=== PATIENT | female | born 1955 | race Caucasian/White ===

== ENCOUNTER 2020-05-12 07:26 | Day surgery (SDC) | payer MEDICARE, SELFPAY ==
[2020-05-06 09:52] VITALS: BMI 27.4
--- NOTE | 2020-05-11 08:38 | HO.ANESPROP2 ---
Documented by User: Dara Brunner 05/11/20 08:39 HPI - Anesthesia Eval Consult details Narrative: 64yo F for Upper Endoscopy opioids daily PMFSH Past Medical History Medical History Arthritis Back pain COVID-19 vaccine administered GERD (gastroesophageal reflux disease) History of anxiety History of Croft's esophagus HTN (hypertension) Hx of radiation therapy Hx of vertigo HX: breast cancer Surgical History Surgical History H/O colonoscopy History of esophagogastroduodenoscopy (EGD) History of lumpectomy of left breast Hx of hysterectomy Hx of tonsillectomy Social History Social History Do you presently have visiting nurse or other home services: No Smoking Status: Former smoker Smoked in Last 30 Days: No Smoking Quit Date: age 62 Use of substances other than those prescribed or required for medical reasons: No Have you been hit, kicked, punched, or otherwise hurt by someone within the past year? If so, by whom?: No Advance Directives Information Provided: No Recently lost weight without trying: No Meds Allergies Allergy/AdvReac Type Severity Reaction Status Date / Time celecoxib [Celebrex] Allergy Severe swelling Verified 05/12/20 08:31 gabapentin [From NEURONTIN] Allergy Severe SWELLING Verified 05/12/20 08:31 fentanyl [FENTANYL] Allergy Intermediate NAUSEA & Verified 05/12/20 08:31 VOMITING, stomach upset influenza vaccine Allergy Severe nausea and Uncoded 05/06/20 10:04 vomiting NSAIDS Allergy Intermediate stomach Uncoded 05/06/20 10:04 upset Home Medications Medication Instructions Recorded Confirmed Last Taken Type amlodipine 1 tab PO BEDTIME 05/06/20 05/06/20 Unknown History black cohosh 40 mg PO TID 05/06/20 05/06/20 Unknown History bupropion HCl 1 tab PO BID 05/06/20 05/06/20 Unknown History esomeprazole magnesium [Nexium] 40 mg PO DAILY 05/06/20 05/06/20 Unknown History hydrochlorothiazide 1 tab PO DAILY 05/06/20 05/06/20 Unknown History lorazepam 1 tab PO BID PRN 05/06/20 05/06/20 Unknown History meclizine 25 mg PO TID PRN 05/06/20 05/06/20 Unknown History morphine 1 tab PO BID 05/06/20 05/06/20 Unknown History Exam Exam Date and Time: May 11, 202038 Height,Weight and Vital Signs: Height 5 ft 5 in Weight 74.843 kg Assessment and Plan Assessment Anesthesia Assessment: Chart Reviewed Documented by User: Rohini Mares 05/12/20 09:40 PMFSH Past Medical History Medical History Arthritis Back pain COVID-19 vaccine administered GERD (gastroesophageal reflux disease) History of anxiety History of Croft's esophagus HTN (hypertension) Hx of radiation therapy Hx of vertigo HX: breast cancer Surgical History Surgical History H/O colonoscopy History of esophagogastroduodenoscopy (EGD) History of lumpectomy of left breast Hx of hysterectomy Hx of tonsillectomy Social History Social History Do you presently have visiting nurse or other home services: No Smoking Status: Former smoker Smoked in Last 30 Days: No Smoking Quit Date: age 62 Use of substances other than those prescribed or required for medical reasons: No Have you been hit, kicked, punched, or otherwise hurt by someone within the past year? If so, by whom?: No Advance Directives Information Provided: No Recently lost weight without trying: No Meds Allergies Allergy/AdvReac Type Severity Reaction Status Date / Time celecoxib [Celebrex] Allergy Severe swelling Verified 05/12/20 08:31 gabapentin [From NEURONTIN] Allergy Severe SWELLING Verified 05/12/20 08:31 fentanyl [FENTANYL] Allergy Intermediate NAUSEA & Verified 05/12/20 08:31 VOMITING, stomach upset influenza vaccine Allergy Severe nausea and Uncoded 05/06/20 10:04 vomiting NSAIDS Allergy Intermediate stomach Uncoded 05/06/20 10:04 upset Home Medications Medication Instructions Recorded Confirmed Last Taken Type amlodipine 1 tab PO BEDTIME 05/06/20 05/06/20 Unknown History black cohosh 40 mg PO TID 05/06/20 05/06/20 Unknown History bupropion HCl 1 tab PO BID 05/06/20 05/06/20 Unknown History esomeprazole magnesium [Nexium] 40 mg PO DAILY 05/06/20 05/06/20 Unknown History hydrochlorothiazide 1 tab PO DAILY 05/06/20 05/06/20 Unknown History lorazepam 1 tab PO BID PRN 05/06/20 05/06/20 Unknown History meclizine 25 mg PO TID PRN 05/06/20 05/06/20 Unknown History morphine 1 tab PO BID 05/06/20 05/06/20 Unknown History Exam Airway Mallampati Class: II TM Dist: >3cm Neck ROM: Full Loose/Missing/Broken Teeth: No Heart: RRR Lungs: CTA Assessment and Plan Assessment Anesthesia Assessment: Anesthesia Plan Discussed and Chart Reviewed Final Anesthetic Review NPO: Yes ASA Class: II Final Preanesthetic Review: Meds/Allgs Chart Reviewed, Consent Obtained/Reviewed and Anes Risks/Benef Reviewed Patient Risk: Low Procedure Risk: Intermediate Anesthetic Plan Anesthetic Plan: MAC: Disposition: Standard PACU
[2020-05-12 08:32] VITALS: BP 118/70; PULSE 74; RESP 16; TEMP 36.2; O2SAT 98
[2020-05-12] MEDS: Lactated Ringers 1,000 ML 100 ML IVCONT (08:57)
--- NOTE | 2020-05-12 09:35 | MHC.SHP ---
Pre-Procedural Eval Section A The patient is an INPATIENT: No Changes since office visit: No Cold of Flu in the past 2 weeks, No New Medical Problems, No Changes in Medication and No Patient answered all questions The History & Physical has been completed within 30 days and I have reviewed it.: Yes Section B Chief Complaint: barretts Allergies: Allergies Allergy/AdvReac Type Severity Reaction Status Date / Time celecoxib [Celebrex] Allergy Severe swelling Verified 05/12/20 08:31 gabapentin [From NEURONTIN] Allergy Severe SWELLING Verified 05/12/20 08:31 fentanyl [FENTANYL] Allergy Intermediate NAUSEA & Verified 05/12/20 08:31 VOMITING, stomach upset influenza vaccine Allergy Severe nausea and Uncoded 05/06/20 10:04 vomiting NSAIDS Allergy Intermediate stomach Uncoded 05/06/20 10:04 upset Plan I have reviewed the history and physical and performed a pertinent physical examination on my patient. No changes have occurred unless specified.
[2020-05-12 09:57] VITALS: BP 93/59; PULSE 71; RESP 18; TEMP 36.1; O2SAT 100
--- NOTE | 2020-05-12 10:01 | PM.OP ---
Brief Operative Note Date of Service: 05/12/20 Pre-op diagnosis: barretts esophagus Post-op diagnosis: same Procedure: EGD Surgeon: Aleksander Moore Anesthesia: MAC Estimated blood loss (mL): 5 Pathology: other (egj biopsies) Condition: stable Disposition: PACU
[2020-05-12 10:12] VITALS: BP 112/66; PULSE 67; RESP 16; TEMP 36.1; O2SAT 100
--- NOTE | 2020-05-12 10:21 | OP_ITS ---
SURGEON: Aleksander Moore MD INDICATIONS: Croft's esophagus. PREOPERATIVE DIAGNOSIS: POSTOPERATIVE DIAGNOSIS: PROCEDURE PERFORMED: Upper endoscopy with biopsy. ESTIMATED BLOOD LOSS: COMPLICATIONS: ANESTHESIA: ASSISTANTS: SPECIMENS: MEDICATIONS: Monitored anesthesia care. DESCRIPTION OF PROCEDURE: History and physical performed. The risks and benefits of the procedure were explained to the patient. Informed consent was obtained. The patient was placed in left lateral decubitus position. The Olympus video gastroscope was introduced into the esophagus, stomach, and duodenum. Examination was performed and the scope was removed. She tolerated the procedure well and was taken to recovery area in stable condition. FINDINGS: Esophagus: The esophagus was normal. There was an irregular EG junction. This was biopsied. Stomach: The stomach showed no evidence of masses, ulcers, or polyps. Duodenum: The bulb and second portion were normal. IMPRESSION: Croft's esophagus. RECOMMENDATION: Follow up the biopsy results. MD ORLANDO Aparicio/URVASHI / [id number]
== END 2020-05-12 10:00 | disposition home or self-care (01) ==
PROVIDERS: Visit Provider Internal Medicine Gastroenterology
PROC: 0DJ08ZZ Inspection of Upper Intestinal Tract, Via Natural or Artificial Opening Endoscopic (ICD-10-PCS; CPT 43235; principal; 2020-05-12 08:40)
DX: K22.70 Barrett's esophagus without dysplasia (principal); K21.9 Gastro-esophageal reflux disease without esophagitis; K58.9 Irritable bowel syndrome, unspecified; Z79.899 Other long term (current) drug therapy
CPT/HCPCS: 43239; 88305

== ENCOUNTER → 2020-06-15 07:48 | Outpatient (BNV) | payer BC, MEDICARE, SELFPAY | PROVIDERS: PCP Family Medicine; Referring Provider Family Medicine; Visit Provider Internal Medicine Medical Oncology | DX: Z85.3 Personal history of malignant neoplasm of breast (principal); M85.80 Other specified disorders of bone density and structure, unspecified site; Z87.891 Personal history of nicotine dependence | CPT/HCPCS: 99204; 99213 ==

== ENCOUNTER 2020-07-29 12:48 | Outpatient (REF) | payer MEDICARE, SELFPAY ==
--- NOTE | ~2020-07-29 | MM_ITS ---
EXAMINATION: MM DIAGNOSTIC DIGITAL BREAST TOMOSYNTHESIS, BILATERAL CLINICAL INFORMATION: History left invasive ductal carcinoma with lobular features 2018. Surgery at local outside hospital and radiation therapy performed [id number]. Prior mammography since ultrasound-guided biopsy currently unavailable. COMPARISON: Mammography: 07/13/2017, 06/29/2017, outside mammography 05/09/2014 ([place], [place]). TECHNIQUE: Digital breast tomosynthesis is performed in both the craniocaudal and mediolateral oblique views along with computer-aided detection (CAD). Synthesized 2D images are generated from the tomosynthesis. Additional magnification left CC and magnification left ML views are obtained. FINDINGS: There are scattered areas of fibroglandular density (ACR BI-RADS breast composition Category b). There are post therapy changes on left with mild scarring upper outer quadrant with adjacent surgical clip. Neither breast shows significant mass or interval architectural abnormality or abnormal calcifications. The right breast is unremarkable. There is small benign asymmetric density mid medial left breast on CC view is stable from 2017 and 2014. No developing density. The axilla and skin contours are unremarkable. Results are provided to the patient at time of visit by the technologist. MM/MM tomosynthesis diagnostic BI IMPRESSION: No mammographic evidence of malignancy. ASSESSMENT: BI-RADS 2: Benign RECOMMENDATION: Routine annual mammography screening. This patient's information was entered into a reminder system with a target due date for their next mammogram.
== END 2020-07-29 12:49 | disposition home or self-care (01) ==
LOC: HO.MAMMO 12:48
PROVIDERS: Visit Provider Internal Medicine Medical Oncology
DX: Z85.3 Personal history of malignant neoplasm of breast (principal); Z98.890 Other specified postprocedural states
CPT/HCPCS: 77062; 77066

== ENCOUNTER 2021-07-30 09:43 | Outpatient (REF) | payer MEDICARE, SELFPAY ==
--- NOTE | ~2021-07-30 | MM_ITS ---
EXAMINATION: MM SCREENING DIGITAL BREAST TOMOSYNTHESIS, BILATERAL CLINICAL INFORMATION: Left invasive ductal carcinoma with lobular features, 2018. Screening, asymptomatic. COMPARISON: Mammography: 07/29/2020, 07/13/2017, 06/29/2017; outside mammography 05/09/2014 ([place], [place]). TECHNIQUE: Digital breast tomosynthesis is performed in both the craniocaudal and mediolateral oblique views along with computer-aided detection (CAD). Synthesized 2D images are generated from the tomosynthesis. FINDINGS: There are scattered areas of fibroglandular density (ACR BI-RADS breast composition Category b). Parenchymal pattern is similar to prior exam. There are post therapy changes on the left with old stable scarring and adjacent surgical clip. Neither breast shows developing density or interval mass or architectural abnormality. No abnormal calcifications. The axilla are unremarkable. MM/MM tomosynthesis screening BI IMPRESSION: -No mammographic evidence of malignancy. -Post therapy changes left breast, stable. ASSESSMENT: BI-RADS 2: Benign RECOMMENDATION: Routine annual mammography screening. This patient's information was entered into a reminder system with a target due date for their next mammogram.
== END 2021-07-30 09:44 | disposition home or self-care (01) ==
LOC: HO.MAMMO 09:43
PROVIDERS: PCP Nurse Practitioner Family; Visit Provider Nurse Practitioner Family
DX: Z12.31 Encounter for screening mammogram for malignant neoplasm of breast (principal)
CPT/HCPCS: 77063; 77067

== ENCOUNTER → 2022-04-11 10:33 | Outpatient (BNVA) | payer MEDICARE, SELFPAY | PROVIDERS: PCP Nurse Practitioner Family; Referring Provider Internal Medicine Medical Oncology; Visit Provider Surgery | DX: Z85.3 Personal history of malignant neoplasm of breast (principal); Z92.3 Personal history of irradiation | CPT/HCPCS: 99202 ==

== ENCOUNTER 2022-08-02 09:57 | Outpatient (REF) | payer BC, SELFPAY ==
--- NOTE | ~2022-08-02 | MM_ITS ---
EXAMINATION: BONE DENSITOMETRY CLINICAL INDICATION: Osteopenia. COMPARISON: Previous BD dated 10/07/2011 and baseline BD dated 07/09/2007. TECHNIQUE: Using a Ch[employer] DXA System (software version: 13.1) manufactured by [email or web address], dual-energy x-ray absorptiometry was performed of the lumbar spine and left hip. The images are of good technical quality. Summary results are attached. FINDINGS: LEFT FEMUR, NECK: Current: BMD 0.867 g/cm2, Z-score 0.3, T-score -1.2, osteopenia. Prior: BMD 0.941 g/cm2. Baseline: BMD 1.045 g/cm2. LEFT FEMUR, TOTAL: Current: BMD 0.842 g/cm2, Z-score 0.0, T-score -1.3, osteopenia, 14.9% decrease from previous, 18.5% decrease from baseline (<5% change is not significant). Prior: BMD 0.990 g/cm2. Baseline: BMD 1.033 g/cm2. AP SPINE L1-L4: Current: BMD 1.470 g/cm2, Z-score 3.9, T-score 2.4, normal, 0.2% decrease from previous, 1.4% decrease from baseline (<5% change is not significant). Prior: BMD 1.473 g/cm2. Baseline: BMD 1.491 g/cm2. IDENTIFIED RISK FACTORS: Menopause, height loss, hysterectomy, left oophorectomy, thiazide. HISTORY OF FRACTURE: None listed. MEDICATIONS: Vitamin D. MM/XR DEXA axial skeleton IMPRESSION: 1. DIAGNOSIS: Osteopenia based on the lowest T-score value of -1.3 in the total femur applying World Health Organization criteria. 2. 10-YEAR FRACTURE RISK PREDICTION, FRAX: Major osteoporotic fracture (clinical spine, forearm, hip or shoulder) 9.1%. Hip fracture 0.9%. 3. Treatment Recommendations: NOF guidelines recommend consideration for treatment in postmenopausal women and men age 50 and older presenting with the following: -A hip or vertebral (clinical or morphometric) fracture. -T-score less than or equal to -2.5 at the femoral neck or spine after appropriate evaluation to exclude secondary causes. -Low bone mass at the hip or spine and a 10-year fracture probability by FRAX of greater than or equal to 3% for hip fracture or greater than or equal to 20% for major osteoporotic fracture based on the [place] adapted WHO algorithm. 4. Other Recommendations: All treatment decisions require clinical judgment and consideration of individual patient factors, including patient preferences, comorbidities, previous drug use, risk factors not captured in the FRAX model (e.g. frailty, falls, vitamin D deficiency, increased bone turnover, interval significant decline in bone density) and possible under or overestimation of fracture risk by FRAX. Additional medical evaluation for secondary cause of low bone mineral density may be appropriate. FUTURE SCAN RECOMMENDATION: People with diagnosed cases of osteoporosis or at high risk for fracture should have regular bone mineral density tests. For patients eligible for Medicare, routine testing is allowed once every 2 years. The testing frequency can be increased to one year for patients who have rapidly progressing disease, those who are receiving or discontinuing medical therapy to restore bone mass, or have additional risk factors.
--- NOTE | ~2022-08-02 | MM_ITS ---
EXAMINATION: MM SCREENING DIGITAL BREAST TOMOSYNTHESIS, BILATERAL CLINICAL INFORMATION: Left breast IDC with lobular features, 2018. Due for yearly. COMPARISON: Prior mammography exams including most recent 07/30/2021. TECHNIQUE: Digital breast tomosynthesis is performed in both the craniocaudal and mediolateral oblique views along with computer-aided detection (CAD). Synthesized 2D images are generated from the tomosynthesis. FINDINGS: There are scattered areas of fibroglandular density (ACR BI-RADS breast composition Category b). There are post therapy changes on the left with mild reduced breast size and old scarring and surgical clip. Neither breast shows developing density or interval significant mass or architectural abnormality or abnormal calcifications. The axilla are unremarkable. No significant changes. MM/MM tomosynthesis screening BI IMPRESSION: -No mammographic evidence of malignancy. -Post therapy changes left breast. ASSESSMENT: BI-RADS 2: Benign RECOMMENDATION: Routine annual mammography screening. This patient's information was entered into a reminder system with a target due date for their next mammogram.
== END 2022-08-02 09:58 | disposition home or self-care (01) ==
LOC: HO.MAMMO 09:57
PROVIDERS: Visit Provider Internal Medicine Medical Oncology
DX: Z12.31 Encounter for screening mammogram for malignant neoplasm of breast (principal); Z13.820 Encounter for screening for osteoporosis; Z78.0 Asymptomatic menopausal state; M85.88 Other specified disorders of bone density and structure, other site
CPT/HCPCS: 77063; 77067; 77080

== ENCOUNTER 2022-10-13 10:11 | Outpatient (AMB) | payer MEDICARE, SELFPAY ==
--- NOTE | 2022-10-13 10:15 | A.OFFVIS_ITS ---
Intake Intake Visit Reasons: hx of left breast CA, 6 month follow up Intake Note: This patient presemt for a six month follow-up breast examination assessment , Hx left breast carcinoma. Patient c/o; denies breast complaints at this time. 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 She had undergone lumpectomy and sentinel node biopsy for an invasive ductal cancer of the left breast in [facility] in 2018. She had a T1 N0 cancer at that time. She moved to [place] thereafter and underwent radiation to the left breast there. She was a candidate for hormonal treatment as she had receptors positive for ERPR but she did not want to proceed with hormonal treatment. She moved back to [place] 2 years ago.. She wanted to be followed by a surgeon so she was referred to me. She is following Dr. Da Silva as well. She denies any complaints at this time. [facility] Medical History Cataracts, bilateral History of left breast cancer Hx of radiation therapy HTN (hypertension) Arthritis Back pain GERD (gastroesophageal reflux disease) HX: breast cancer Hx of vertigo History of anxiety COVID-19 vaccine administered History of Croft's esophagus Surgical History History of knee replacement Hx of tonsillectomy Hx of hysterectomy History of lumpectomy of left breast History of esophagogastroduodenoscopy (EGD) H/O colonoscopy Family History Maternal Aunt Breast cancer Mother Hypertension Brother Hypertension Maternal Uncle Brain cancer Social History Household Members: Spouse Housing: House Are you a primary healthcare receptionist to a significant other at home: No Do you presently have visiting nurse or other home services: No Alcohol intake: former Patient Tobacco Use Status: Never used Tobacco service: No Current occupational status: retired Review of Systems Const Denies chills and Denies fever(s) Card Denies chest pain, Denies dyspnea and Denies dyspnea on exertion Resp Denies cough, Denies dyspnea and Denies dyspnea on exertion GI Denies hematochezia and Denies change in bowel habits Denies hematuria Musc Denies back pain and Denies limited range of motion Neuro Denies focal weakness and Denies convulsions Psych Denies depression and Denies mood swings Physical Exam Const General: comfortable and no acute distress Orientation/consciousness: patient oriented x3 Neck Neck: Yes no lymphadenopathy Chest Other: No palpable breast masses, no nipple or skin changes, no axillary lymphadenopathy Resp Auscultation: clear to auscultation bilaterally Cardio Rhythm: regular rhythm GI Palpation (GI): Soft to palpation, nontender and no guarding Neuro General: patient oriented x3 Assessment & Plan Assessment & Plan (1) History of left breast cancer: Code(s): Z85.3 - Personal history of malignant neoplasm of breast Plan: Current exam does not reveal any palpable breast masses. I have reviewed her mammogram from July, and this is unremarkable. I emphasized to her to continue doing yearly screening mammograms. She continues to follow with Dr. Da Silva although she says that she did not want to go for hormonal treatment She can see me in the office again next year after her mammogram. Coding Level of Care Code Est Pt Level 3 (03563) Diagnoses History of left breast cancer Z85.3
== END 2022-10-13 10:43 | disposition home or self-care (01) ==
PROVIDERS: Visit Provider Surgery
DX: Z85.3 Personal history of malignant neoplasm of breast (principal)
CPT/HCPCS: 99213

== ENCOUNTER → 2022-10-13 10:11 | Outpatient (BNVA) | payer MEDICARE, SELFPAY | PROVIDERS: Visit Provider Surgery | DX: Z85.3 Personal history of malignant neoplasm of breast (principal) | CPT/HCPCS: 99212 ==

== ENCOUNTER 2023-08-04 10:15 | Outpatient (REF) | payer MEDICARE, SELFPAY ==
--- NOTE | ~2023-08-04 | MM_ITS ---
EXAMINATION: MM SCREENING DIGITAL BREAST TOMOSYNTHESIS, BILATERAL CLINICAL INFORMATION: Screening. Asymptomatic. Patient has history of prior left breast cancer diagnosed in 2018. COMPARISON: Mammography: This study is compared with prior exams dating back to 2018. TECHNIQUE: Digital breast tomosynthesis is performed in both the craniocaudal and mediolateral oblique views along with computer-aided detection (CAD). Synthesized 2D images are generated from the tomosynthesis. FINDINGS: There are scattered areas of fibroglandular density (ACR BI-RADS breast composition Category b). There are no significant masses, abnormal calcifications, or other abnormalities. There is minor architectural changes in the superior aspect of the left breast. This is related to prior surgery. MM/MM tomosynthesis screening BI IMPRESSION: No mammographic evidence of malignancy. ASSESSMENT: BI-RADS BI-RADS 2 - Benign Findings RECOMMENDATION: Routine annual mammography screening. 1 year F/U This examination should not preclude the clinical evaluation of a suspicious palpable abnormality. This patient's information was entered into a reminder system with a target due date for their next mammogram.
== END 2023-08-04 10:16 | disposition home or self-care (01) ==
LOC: HO.MAMMO 10:15
PROVIDERS: PCP Nurse Practitioner Family; Visit Provider Nurse Practitioner Family
DX: Z12.31 Encounter for screening mammogram for malignant neoplasm of breast (principal)
CPT/HCPCS: 77063; 77067

== ENCOUNTER → 2023-08-04 10:15 | Outpatient (BNV) | payer MEDICARE, SELFPAY | PROVIDERS: PCP Nurse Practitioner Family; Visit Provider Radiology Diagnostic Radiology | DX: Z12.31 Encounter for screening mammogram for malignant neoplasm of breast (principal) | CPT/HCPCS: 77063; 77067 ==

== ENCOUNTER 2023-10-11 10:14 | Outpatient (AMB) | payer MEDICARE, SELFPAY ==
[2023-10-11 10:22] VITALS: BP 116/67; PULSE 82; BMI 25.3
--- NOTE | 2023-10-11 10:22 | MHC.OFFVIS ---
Vital Signs 10/11/23 10:22 Height 5 ft 5 in Weight 152 lb BMI 25.3 BP 116/67 Blood Pressure Location Rt brachial Position Sitting Pulse 82 Intake Visit Reasons: hx of left breast CA, 1 year follow up Intake Note: This patient presents for hx of left breast CA, 1 year follow up. Pt c/o; reports no complaints at this time. 08/04/2023-Mammo screening Champagne Maker Required: No Accompanied by: Self / Same As Patient Allergies celecoxib [Celebrex] Allergy (Severe, Verified 10/11/23 10:28) swelling gabapentin [From NEURONTIN] Allergy (Severe, Verified 10/11/23 10:28) SWELLING fentanyl [FENTANYL] Allergy (Intermediate, Verified 10/11/23 10:28) NAUSEA & VOMITING, stomach upset influenza vaccine Allergy (Severe, Uncoded 10/11/23 10:28) nausea and vomiting NSAIDS Allergy (Intermediate, Uncoded 10/11/23 10:28) stomach upset HPI HPI hx of left breast CA, 1 year follow up: Details: 68-year-old female here for a history of left breast cancer. She had undergone lumpectomy and sentinel node biopsy for an invasive ductal cancer of the left breast in [facility] in 2018. She had a T1 N0 cancer at that time. She moved to [place] thereafter and underwent radiation to the left breast there. She was a candidate for hormonal treatment as she had receptors positive for ERPR but she did not want to proceed with hormonal treatment. She moved back to [place] 3 years ago. She continues to follow up with Dr. Da Silva as well as Oncology. She denies any palpable breast masses. She says she feels well overall. [facility] Medical History Cataracts, bilateral History of left breast cancer Hx of radiation therapy HTN (hypertension) Arthritis Back pain GERD (gastroesophageal reflux disease) HX: breast cancer Hx of vertigo History of anxiety COVID-19 vaccine administered History of Croft's esophagus Surgical History History of knee replacement Hx of tonsillectomy Hx of hysterectomy History of lumpectomy of left breast History of esophagogastroduodenoscopy (EGD) H/O colonoscopy Family History Maternal Aunt Breast cancer Mother Hypertension Brother Hypertension Maternal Uncle Brain cancer Social History Household Members: Spouse Housing: House Are you a primary physician primary care sports medicine to a significant other at home: No Do you presently have visiting nurse or other home services: No Alcohol intake: former Patient Tobacco Use Status: Never used Tobacco service: No Current occupational status: retired Review of Systems Const Denies chills and Denies fever(s) Card Denies chest pain, Denies dyspnea and Denies dyspnea on exertion Resp Denies cough, Denies dyspnea and Denies dyspnea on exertion GI Denies hematochezia and Denies change in bowel habits Denies hematuria Musc Denies back pain and Denies limited range of motion Neuro Denies focal weakness and Denies convulsions Psych Denies depression and Denies mood swings Physical Exam Vital Signs: Last Vital Signs Pulse 82 10/11/23 10:22 BP 116/67 10/11/23 10:22 BMI result Body Mass Index 25.3 Const General: comfortable and no acute distress Orientation/consciousness: patient oriented x3 Neck Neck: Yes no lymphadenopathy Chest Other: No palpable breast masses, no nipple or skin changes, no axillary lymphadenopathy Resp Auscultation: clear to auscultation bilaterally Cardio Rhythm: regular rhythm GI Palpation (GI): Soft to palpation, nontender and no guarding Neuro General: patient oriented x3 Assessment & Plan Assessment & Plan (1) History of left breast cancer: Code(s): Z85.3 - Personal history of malignant neoplasm of breast Category: Medical Plan: She has a history of left breast cancer more than 5 years ago. She is doing very well. Current exam does not reveal any palpable breast mass or axillary lymphadenopathy I have reviewed her mammogram from July,. This is a BI-RADS 2 mammogram. I reminded her to continue doing this every year She was asked to continue follow-up with Dr. Da Silva. She can see me on a p.r.n. basis but I can see her again next year for another breast exam. Coding Level of Care Code Est Pt Level 3 (53124) Diagnoses History of left breast cancer Z85.3
== END 2023-10-11 10:42 | disposition home or self-care (01) ==
PROVIDERS: PCP Nurse Practitioner Family; Visit Provider Surgery
DX: Z85.3 Personal history of malignant neoplasm of breast (principal)
CPT/HCPCS: 99213

== ENCOUNTER → 2023-10-11 10:14 | Outpatient (BNVA) | payer MEDICARE, SELFPAY | PROVIDERS: PCP Nurse Practitioner Family; Visit Provider Surgery | DX: Z85.3 Personal history of malignant neoplasm of breast (principal) | CPT/HCPCS: 99212 ==

== ENCOUNTER 2024-08-16 09:59 | Outpatient (REF) | payer MEDICARE, SELFPAY ==
--- OUTSIDE RECORDS SUMMARY | 2024-08-16 10:25 | XMS_ITS | Data Portability ---
Author Organization [place] [facility], [facility] Address [address] [place] [address] Assessment No assessment recorded. Plan of Treatment Reminders Order Date Submit Date Provider Last Modified By Organization Details Last Modified Time Details Appointments None recorded. Lab None recorded. Referral None recorded. Procedures None recorded. Surgeries None recorded. Imaging x-ray, foot, 3 views 2015 016 In-House Results, For Internal Use Only, Do Not Delete/merge, [id number] 6 11:01:18 MRI, ankle - Left ankle MRI without contrast. assess PB tendon. continued pain post 5th metatarsal fracture. 2015 016 NEDRA Not available 6 16:25:53 x-ray, foot, 3 views 2014 015 [email or web address] In-House Results, For Internal Use Only, Do Not Delete/merge, [id number] 5 09:29:34 MRI, ankle - Left ankle MRI without contrast. assess PB tendon. continued pain post 5th metatarsal fracture. 2014 015 ATHENAFAX Not available 5 10:52:41 x-ray, foot, 3 views 2014 015 [email or web address] In-House Results, For Internal Use Only, Do Not Delete/merge, [id number] 09:16:29 Medication Orders None recorded. Patient TargetsNo targets recorded. Patient Instructions Encounter Date Encounter Id Patient Instructions Last Modified By Organization Details Last Modified Time 05/26/2014 [id number] RTc in 1 month D/C Brace Not available 05/26/2014 14:31:15 07/01/2014 [id number] RTC in 4 wks If still significant pain will order MRI to check tendons. RTC in 1 M. Not available 07/01/2014 09:12:25 08/04/2014 [id number] RTC in 3 weeks. Not available 08/04/2014 09:25:09 06/24/2015 [id number] MRI left ankle Patient educated about the clinical signs of infection: chills, fevers, nightsweats, nausea and vomiting. Patient told to call the office should any signs appear. Patient instructed on signs of deep vein thrombosis: pain, swelling, tenderness not relieved by NSAIDs or pain medicine in calf, fever, or shortness of breath and was instructed to go to the emergency department if such occurs. Patient is to continue all medication given as tolerated. Appointment and follow up were reiterated and patient understands post op plan and questions were answered today at length. RTC 1 week Not available 06/24/2015 11:01:19 07/01/2015 [id number] MRI reviewed RTC 1 month Not available 07/01/2015 10:09:57 Reason for Referral None Reported. Results Created Date Observation Date Name Description Value Unit Range Abnormal Flag Note LastModifiedBy Organization Detail LastModifiedTime 06/26/19 16 06/26/2015 MRI ankle (left ) REGLA Ware MR#: [id number] REGLA Ware 3 REGLA Ware NAME: YEYO POLLACK DATE OF : 1955 REFERR ING PHYSIC JESSICA: RAVIN ALARCON EXAM DATE: 016 ACCESS ION NUMBER : [id number] EXAM DESCRI PTION: MRI ANKLE (LEFT) INDICA TION: Histor y of ankle/ hindfo ot pain. TECHNI QUE: MRI of the left ankle was obtain ed omi ware contra st. RADER GS: There is some minima l edema involv ing the base of the fifth metata rsal at the level of the perone us brevis insert ion. There is some overly ing soft tissue edema. There is no fractu re identi fied. The perone us brevis tendon itself appear s within normal limits . The perone us longus is normal . Anteri or and events and promotions assistant ior syndes motic ligame nts are intact . Calcan eofibu lar ligame nt is intact . Anteri or and events and promotions assistant ior talofi bular ligame nts are intact . The events and promotions assistant ior tibial , flexor digito rum and flexor halluc is tendon s are intact . There is no mass seen at the level of the tarsal tunnel . Deltoi d ligame nts are intact . There are no osteoc hondra l lesion s involv ing the talar dome. The tibial is anteri or, extens or halluc is and extens or digito rum tendon s appear within normal limits . No signif icant tibiot alar or subtal ar joint effusi on. Achill es tendon is intact . There is no eviden ce of retroc alcane al bursit is. There is no edema involv ing Kager' s fat pad. There is no signif icant parate non soft tissue edema. The planta r fascia is intact . IMPRES BRYNN: There is some minima l edema involv ing the base of the fifth metata rsal compat ible with low-gr albert chroni c stress reacti on. There is also some adjace nt soft tissue edema. The perone us brevis itself is intact withou t signal abnorm ality. Read by: GURJIT MOORE Transc ribed by: JANAK CAPONE Transc ribed Date: 10:42: 51 AM Electr onical ly signed by: GURJIT MOORE Date signed : 2:39:4 1 PM [facility] (Closed) [address] [facility] [address], [place], [address], 06/29/2015 12:03:26 06/26/19 16 06/25/2015 MRI, ankle No observ ation record ed. [email or web address] [facility] (Closed) [address] [facility] [address], [place], [address], 06/30/2015 11:28:01 Result Notes None recorded. Problems Name Problem SNOMED Code Status Onset Date Resolution Date Notes Provider Name and Address Organization Details Recorded Time Juan 91525915 Active Ravin Alarcon DPM [address], [address] , [facility] [place] 6 10:09:57 Peroneal tendinitis 63206150 Active Ravin Alarcon DPM [address] [place] [address], [phone] , [facility] [place] 6 10:09:57 Closed fracture of metatarsal bone 85770555 Active Ravin Alarcon DPM [address] [place] [address], [phone] , [facility] [place] 6 10:09:57 Problem Notes None recorded. Procedures Surgical History Date Name Laterality Status Provider Name and Address Organization Details Recorded Time 06/24/19 16 I&D multiple ingrown complex completed Ravin Alarcon DPM [address] [place] [address], [phone], [facility] [place] 06/24/2015 10:58:34 05/27/19 15 Ultrasound - Metatarsal Fracture completed Ravin Alarcon DPM [address] [place] [address], [phone], [facility] [place] 05/26/2014 14:31:15 Anesth vaginal hysterectomy completed [facility] [place] 12/09/2013 10:07:26 Remove tonsils and adenoids completed [facility] [place] 12/09/2013 10:07:26 Imaging Results None recorded. Procedure Notes None recorded. Medical Equipment None Reported. Allergies Allergen ID Allergen Name Allergen Category Reaction Reaction Severity Criticality Documentation Date Start Date Code Code System Note Provider Name and Address Organization Details Recorded Time 2741 Celebrex medicatio n Not available Not available Not available 12/09/2013 76305 7 RxNorm Hermila Concepcio n null, [facility] [place] 4 10:07:26 2742 fentanyl medicatio n Not available Not available Not available 12/09/2013 4337 RxNorm Hermila Concepcio n null, [facility] [place] 4 10:07:26 Medications Name Sig Start Date Stop Date Status Note LastModified by Organization Details LastModified Time Local antiinflammatory apply to area of pain TID 2014 active Not Available Not Available Not Avai lable Omni Pain Formula GPI-2 apply to area of pain TID 2013 active Not Available Not Available Not Avai lable irbesartan 150 mg-hydrochlorothi azide 12.5 mg tablet active Not Available Not Available Not Available azithromycin 250 mg tablet active Not Available Not Available No t Available hydrocodone 5 mg-acetaminophen 325 mg tablet active Not Available Not Availabl e Not Available ciprofloxacin 500 mg tablet active Not Available Not Available No t Available lorazepam 0.5 mg tablet active Not Available Not Available Not Available hyoscyamine ER 0.375 mg tablet,extended release,12 hr active Not Available Not Availabl e Not Available levetiracetam 250 mg tablet active Not Available Not Available No t Available irbesartan 75 mg tablet active Not Available Not Available Not Available morphine ER 15 mg tablet,extended release active Not Available Not Available Not Available pravastatin 20 mg tablet active Not Available Not Available Not Available fluocinonide 0.05 % topical cream active Not Available Not Availa ble Not Available morphine 15 mg immediate release tablet active Not Available Not Available Not Available Premarin 0.625 mg tablet active Not Available Not Available Not Available Bactrim active Not Available Not Avail able Not Available hydrochlorothiazi de 12.5 mg tablet active Not Available Not Avai lable Not Available Vitals Date Recorded Body height Body mass index (BMI) Body weight Heart rate Body temperature Systolic And Diastolic Provider Name and Address Organization Details Last Updated DateTime 5 165.1 cm 26 kg/m2 04889.4 0972 g 71 /min 71 [degF] 118/69 mm[Hg] Kati Jordan [facility] [place] 5 08:55:18 Date Recorded Body mass index (BMI) Body weight Body height Body temperature Heart rate Systolic And Diastolic Provider Name and Address Organization Details Last Updated DateTime 6 26 kg/m2 17217.4 0972 g 165.1 cm 96.7 [degF] 71 /min 102/58 mm[Hg] Andre Jean Mariebreanna [facility] [place] 6 10:39:53 Date Recorded Body height Body mass index (BMI) Body weight Body temperature Heart rate Systolic And Diastolic Provider Name and Address Organization Details Last Updated DateTime 6 165.1 cm 26 kg/m2 88064.4 0972 g 96.2 [degF] 73 /min 108/74 mm[Hg] Andre Pearl [facility] [place] 6 09:49:53 Date Recorded Body weight Heart rate Body mass index (BMI) Body height Body temperature Systolic And Diastolic Provider Name and Address Organization Details Last Updated DateTime 5 25455.4 0972 g 67 /min 26 kg/m2 165.1 cm 97.1 [degF] 137/75 mm[Hg] Kati Jordan [facility] [place] 5 08:54:18 Date Recorded Body weight Body height Body temperature Heart rate Body mass index (BMI) Systolic And Diastolic Provider Name and Address Organization Details Last Updated DateTime 5 53808.4 0972 g 165.1 cm 97.8 [degF] 72 /min 26 kg/m2 93/60 mm[Hg] Kati Jordan [facility] [place] 5 09:10:44 Social History Question Answer Notes LastModified by Organizat ion Details LastModified Time Tobacco Smoking Status Current Every Day Smoker 1/2 pack a day [facility] [place] 12/09/2013 10:07:27 How Much Tobacco Do You Smoke? 0.5 PPD [email or web address] Information not available 12/09/2013 Sex: Unknown Functional Status None recorded. Mental Status None recorded. Family History Relationship Description Onset Age of this Age Resolved Age Notes LastModified by Organization Details LastModified Time Unspecified Relation History of hypertension kfeliz Not available 08:52:23 Unspecified Relation Hypercholest erolemia kfeliz Not available 2013 08:52:23 Unspecified Relation Total thyroidectom y kfeliz Not available 2013 08:52:23 Unspecified Relation History of malignant neoplasm kfeliz Not available 2013 08:52:23 Medical History Condition Response Coronary Artery Disease N Gout N Hernia N Lung Disease N Blood Clots N Pacemaker N Edema N Headaches/Migraines N Deep Vein Thrombosis N Varicose Veins N Arthritis Y Stoner Bite N Cancer N Stroke N Leg or Foot Ulcers N Raynaud's Disease N Polio N Liver Disease N Rheumatoid Arthritis N Foot Deformity N Fibromyalgia N Dialysis N Kidney Disease N Dyslipidemia N Artificial Joints N Thyroid Problems N Anemia N Back Pain Y Diabetes N Difficulty swallowing N Bleeding Disorder N Seizures/Epilepsy N Tuberculosis N AIDS/HIV N Asthma N Substance Abuse N Psoriasis N Peripheral Vascular Disease N Hepatitis N Heart Disease N Pulmonary Embolism N Hypertension Y Osteoporosis N Gynecological HistoryNo gynecological history recorded. Obstetrics History GPAL:G 0 P 0 0 0 0 Past Encounters Encounter ID Performer Location Encounter Start Date Encounter Closed Date Diagnosis/Indication Diagnosis SNOMED-CT Code Diagnosis ICD10 Code Diagnosis Note [id number] BR[address] [facility] [address] (DO NOT USE) [address] [place] [address] 12/09/2013 09:25:25 12/09/2013 11:04:03 Closed fracture of metatarsal bone 42248839 Left #5 met base fracture [id number] Ravin Alarcon DPM [facility] (DO NOT USE) [address] [place] [address] 01/08/2014 09:24:28 01/08/2014 10:02:24 Closed fracture of metatarsal bone 87950120 Left #5 met base fracture [id number] Ravin Alarcon DPM [facility] (DO NOT USE) [address] [place] [address] 01/29/2014 08:42:57 01/29/2014 09:23:59 Closed fracture of metatarsal bone 97433605 Left #5 met base fracture healing well [id number] Ravin Alarcon DPM [facility] (DO NOT USE) [address] [place] [address] 02/26/2014 08:46:18 02/26/2014 09:26:58 Closed fracture of metatarsal bone 15079681 Left #5 met base fracture mostly resolved. [id number] Ravin Alarcon DPM [facility] (DO NOT USE) [address] [place] [address] 03/26/2014 08:50:03 03/26/2014 09:20:00 Closed fracture of metatarsal bone 08388341 Left #5 met base fracture mostly resolved. DOI: September 2013 Continue wearing tri lock brace [id number] Ravin Alarcon DPM [facility] (DO NOT USE) [address] [place] [address] 05/26/2014 08:48:57 05/26/2014 09:10:55 Closed fracture of metatarsal bone 62729454 Left #5 met base fracture healing well DOI: September 2013 [id number] Ravin Alarcon DPM [facility] (DO NOT USE) [address] [place] [address] 07/01/2014 08:50:08 07/01/2014 09:16:28 Closed fracture of metatarsal bone 44754701 Left #5 met base fracture healing well DOI: September 2013 [id number] Ravin Alarcon DPM [facility] (DO NOT USE) [address] [place] [address] 08/04/2014 08:49:08 08/04/2014 09:29:34 Closed fracture of metatarsal bone 82462206 Left #5 met base fracture healing well DOI: September 2013 [id number] Ravin Alarcon DPM [facility] (DO NOT USE) [address] [place] [address] 06/24/2015 10:30:13 06/24/2015 11:57:46 Paronychia 39390119 L03.90 2nd digit medial border left Closed fra cture of metatarsal bone 77674432 S92.302S Left #5 met base fracture healing well DOI: September 2013 Peroneal tendinitis 5320 8009 M76.72 [id number] Ravin Alarcon DPM [facility] (DO NOT USE) [address] [place] [address] 07/01/2015 09:43:31 07/01/2015 10:04:38 Paronychia 09714330 L03.90 2nd digit medial border left Closed fra cture of metatarsal bone 12044585 S92.302S Left #5 met base fracture healing well DOI: September 2013 Peroneal tendinitis 5320 8009 M76.72 Health Concerns Section Related Observation LastModified by Organization Detai ls LastModified Time None Recorded Concern Status LastModified by Organization Details LastModified Time None Recorded Advance Directives Directive None Recorded Payers Insurance Date Sequence Insurance Name Policy Number Policy Aguilar Covered Member ID Aguilar Member ID Guarantor Name 06/22/2015 [employer] Kati Butts 000 000 Kati Hdz Beckie 07/26/2015 1 [place] Kati Butts [id number] Kati Butts 06/22/2015 1 [facility] [id number] Patel Butts [id number] Kati Butts Notes Date Note Type Note Provider Name and Address Organization Details Recorded Time 06/24/2015 text/html Podiatry FootReported bypatient.Location :left Quality:burning; stabbing; sharp; occasional Duration:Left lateral foot: 1 year, Left 2nd digit: 3 days Alleviating Factors:rest Aggravating Factors:walking; weight bearing Associated Symptoms:no weakness; no numbness; no swelling; no redness; no warmth; no radiation down leg; no drainage; no aching; no throbbing;tingling Previous Surgery:none Prior Imaging:none Previous Injections:none Previous Treatments:noneNot es:Patient presents today after not being seen for a year. Patient was waiting to get new insurance and now has it. Patient states she is here to have her left lateral foot checked again after having the left 5th met base fracture last year. Patient states she did not get the MRI that was ordered due to the insurance issue she had. Patient is also here after waking up Monday and noticing that her Left 2nd digit was red and inflammed. Patient states she went to her primary physician who said it was a form of cellulitis. Patient was then told to come back and see to confirm. Patient is taking Bactrim as prescribed by her primary. Patient states she has a burning and tingling pain in her toe. Pain level 0-2/10 with 10 being the worst. Ravin Alarcon DPM [address], [address], [facility] 06/24/2015 11:02:45 07/01/2015 text/html Podiatry F/UReported bypatient.Symptoms :improving Previous Therapy:none Previous Injections:none Prior Studies:x ray; MRI Shoes:flat shoesNotes:Patient presents today for a follow up due to a paronychia of her left 2nd digit, as well as to review her MRI results. Patient states she is doing well with no pain. Patient states she has been following the aftercare instructions and notes no drainage with the bandage changes. Patient states she has no pain in her toe. Patient is also here due to a fracture of her left 5th met. Patient had an MRI done since her last visit. Patient states she occasional soreness in the affected area. Patient states depending on her activity it can be minimally painful. Pain level varies from 0-3/10 with 10 being the worst. Ravin Alarcon DPM [address], [address], [facility] - [facility] 07/01/2015 10:10:19 OBGyn Episode No OBEpisode recorded.
--- OUTSIDE RECORDS SUMMARY | 2024-08-16 10:25 | XMS_ITS | Patient Health Record ---
Author Organization [facility] Address [address] [place] [address] Care Team Providers Care Pump Assembler Name Role Phone Ronal Cabral Primary Care Provider Aleksander Ross Jr Unavailable Allergies Allergen (clinical drug ingredient) Drug/Non Drug Allergy documented on EMR Reaction Allergy Type Onset Date Status Non-steroidal anti-inflammatory agent (FN) NSAIDS (uncoded) Unknown Allergy Active Reason For Referral No Information Medications Medication SIG (Take, Route, Frequency, Duration) Notes Start Date End Date Status Meclizine HCl 25 MG Orally Active amLODIPine Besylate 10 MG Orally Active Morphine Sulfate ER 15 MG Orally Active hydroCHLOROthiazide 25 MG Orally Active buPROPion HCl ER (SR) 150 MG Orally Active Vitamin D Active NexIUM 40mg Active LORazepam 0.5mg Acti ve Immunizations Vaccine Route Administration Date Status Comme nts Influenza Unknown 04/22/2020 Refused Influenza Unknown 10/05/2022 Refused Social History Tobacco Use: Social History Observation Description Date Details (start date - stop date) Former Smoker NA - NA Tobacco Use/Smoking Question Answer Notes Patient is a former smoker When did you stop smoking? 2018 How long has it been since you last smoked? 1-5 years Alcohol Screen Question Answer Notes Did you have a drink containing alcohol in the p ast year? No Points 0 Interpretation Negative Problems Problem Type SNOMED Code ICD Code Onset Dates Problem Status W/U Status Risk Notes Problem 618811152 Colon cancer screening (Z12.11) Active confirmed Problem 095098644 Croft's esophagus without dysplasia (K22.70) Active confirmed Problem 57972908 Irritable bowel syndrome, unspecified type (K58.9) Active confirmed Vital Signs Temperature 97.5 degrees Fahrenheit 11/15/2023 Blood pressure diastolic 00 mm Hg 11/15/2023 Height 65 in 11/15/2023 Blood pressure systolic 000 mm Hg 11/15/2023 Weight 153 lb 6 oz lbs 11/15/2023 BMI 25.52 kg/m2 11/15/2023 Encounters Encounter Location Date Provider Diagnosis [facility] [address] [place] [address] 11/15/2023 Aleksander Moore Jr Croft's esophagus without dysplasia K22.70 ; Irritable bowel syndrome, unspecified type K58.9 and Colon cancer screening Z12.11 Assessments Encounter Date Diagnosis (ICD Code) Assessment Notes Treatment Notes Treatment Clinical Notes Section Notes 11/15/2023 Croft's esophagus without dysplasia (ICD-10 - K22.70) Croft esophagus material was printed At this time, she is doing well. She has no complaints of dysphagia, hematemesis, or melena. She will continue to use esomeprazole for her reflux. We discussed diet, lifestyle modifications, and weight management regarding the treatment of reflux. IBS symptoms are under good control. Followup will be in one year. 11/15/2023 Irritable bowel syndrome, unspecified type (ICD-10 - K58.9) At this time, she is doing well. She has no complaints of dysphagia, hematemesis, or melena. She will continue to use esomeprazole for her reflux. We discussed diet, lifestyle modifications, and weight management regarding the treatment of reflux. IBS symptoms are under good control. Followup will be in one year. 11/15/2023 Colon cancer screening (ICD-10 - Z12.11) At this time, she is doing well. She has no complaints of dysphagia, hematemesis, or melena. She will continue to use esomeprazole for her reflux. We discussed diet, lifestyle modifications, and weight management regarding the treatment of reflux. IBS symptoms are under good control. Followup will be in one year. Plan Of Treatment Future Test Test Name Order Date UPPER GI ENDOSCOPY 08/10/2012 UPPER GI ENDOSCOPY 04/22/2020 Next Appt Details Provider Name:Aleksander woodall Jr, 11/13/2024 10:20:00 AM, [address], [address], [place], [address], Insurance Providers Payer Name Payer Address Payer Phone Subscriber Number Group Number Insured Name Patient Relationship to Insured Coverage Start Date Coverage End Date [facility] [address] [place], [place] [id number] DARYA JARAMILLO Self - patient is the insured Medical (General) History Medical History History ICD Code hypertension degenerative joint disease back problems anxiety breast cancer vertigo Colonoscopy 2015, normal, ten-year follo wup Croft's esophagus, EGD 05/12, no intestinal metaplasia, five-year followup knee replacement right knee Surgical History Surgery Date(Month/Year) hysterectomy at age 21 with removal of o ne ovary for benign disease tonsillectomy breast cancer left, status post lumpecto my right knee replacement 09/27 Cataract repair surgery both eyes 07/29
--- OUTSIDE RECORDS SUMMARY | 2024-08-16 10:25 | XMS_ITS | Patient Health Record ---
Author Organization [facility] Address [address] [place] [address] Care Team Providers Care Registered Nurse [facility] Name Role Phone Ronal Cabral MD Primary Care Provider Dawood Ba Unavailable [phone] Allergies Allergen (clinical drug ingredient) Drug/Non Drug Allergy documented on EMR Reaction Allergy Type Onset Date Status celecoxib Celebrex upset stomach Drug Allergy Act michelle fentanyl Fentanyl vomiting Drug Allergy Active Motrin upset stomach Drug Allergy Act michelle Substance with sulfonamide structure and antibacterial mechanism of action (substance) Sulfa Antibiotics Unknown Drug Allergy Active Reason For Referral No Information Medications Medication SIG (Take, Route, Frequency, Duration) Notes Start Date End Date Status Hyoscyamine Sulfate ER 0.375 MG 1 tablet Orally every 12 hrs Not-Taking Irbesartan 150 MG 1 tablet Orally Once a day Not-Taking ASO Ankle/Foot Stablizing AFO As directe d Wear Daily; Duration: as needed 06/21/2017 Active ZyrTEC Allergy Activ e hydroCHLOROthiazide 12.5 MG 1 capsule in the morning Orally Once a day Active amLODIPine Besylate 10 MG 1 tablet Orall y Once a day; Duration: 30 day(s) Active buPROPion HCl 150mg Active Premarin 0.625 MG 1 tablet Orally Daily for Three Weeks, 1 Week off Not-Taking Vitamin D 44898 Not- Taking Morphine Sulfate 15 MG 1 tablet as neede d Orally every 4 hrs Active LORazepam 0.5 MG 1 tablet as needed Orally every 6 hrs Active NexIUM Active Social History Tobacco Use: Social History Observation Description Date Details (start date - stop date) Current Smoker 02/06/1999 - NA Tobacco Use/Smoking Question Answer Notes Are you a: current smoker When did you start smoking? 02/06/1999 How often do you smoke cigarettes? every day How many cigarettes a day do you smoke? 5 or les s Are you interested in quitting? Ready to quit Additional Findings: Tobacco Non-User Current no n-smoker Alcohol Screen Question Answer Notes Did you have a drink containing alcohol in the p ast year? No Points 0 Interpretation Negative Tobacco use other than smoking: Question Answer Notes Are you an other tobacco user? No Plan Of Treatment Pending Test Test Name Order Date X ray : Foot, right 3V 06/21/2017 X ray : Foot, right 3V 07/14/2017 [id number] TENDON SHEATH/LIGAMENT 0 10/18/2016 Insurance Providers Payer Name Payer Address Payer Phone Subscriber Number Group Number Insured Name Patient Relationship to Insured Coverage Start Date Coverage End Date Medicare [employer] [address] [place] [address] [id number] Kati Butts Self - patient is the insured Medical (General) History Medical History History ICD Code Anxiety Arthritis Broken bones High blood pressure Numbness Osteoporosis Reflux ( GERD) Measles Mumps Chicken pox Back,Hip,and Knee pain Surgical History Surgery Date(Month/Year) Tonsilectomy 1965 Hysterectomy 1976 breast cancer 2018
--- OUTSIDE RECORDS SUMMARY | 2024-08-16 10:25 | XMS_ITS | Clinical Summary ---
Author Organization [facility] Address [address] [place] [address] Care Team Providers Care Equine Breeder Name Role Phone Cat Gudino Primary Care Provider [phone] Allergies Active Allergy Reactions Criticality Noted Date Comments Nutritional Supplements Nausea And Vomiting 04/2017 Fentanyl And Related Nausea And Vomiting 2017 Influenza Vaccines Nausea And Vomiting Low 08/09/19 18 Medications Medication Sig Dispensed Refills Start Date End Date Status esomeprazole (NEXIUM) capsule 20 mg Take 20 mg by mouth every morning before breakfast. 0 Active estrogens, conjugated, (PREMARIN) 0.625 MG tablet Take 0.625 mg by mouth daily. Take daily for 21 days then do not take for 7 days. 0 Active irbesartan (AVAPRO) 75 MG tablet Take 75 mg by mouth daily. 0 Active HYDROCHLOROTHIAZIDE PO Take 12.5 mg by mouth daily. 0 Active buPROPion (WELLBUTRIN XL) 150 MG 24 hr tablet Take 150 mg by mouth daily. 0 Active LORazepam (ATIVAN) 0.5 MG tablet Take 0.5 mg by mouth every 6 (six) hours as needed. 0 Active Hyoscyamine Sulfate ER 0.375 MG TBCR Take 0.37 mg by mouth 2 (two) times a day. 0 Active Morphine Sulfate ER (MS CONTIN) 15 MG TBCR Take 15 mg by mouth every 12 (twelve) hours. 0 Active ergocalciferol (VITAMIN D2) capsule 63406 units Take 50,000 Units by mouth once a week. 0 Active Active Problems Problem Noted Date Diagnosed Date Malignant neoplasm of upper- outer quadrant of left breast in female, estrogen receptor positive 08/10/2017 Primary osteoarthritis involving multiple joints 08/10/2017 Essential hypertension 08/10/2017 History of postmenopausal HRT 08/10/2017 Gastroesophageal reflux disease 08/10/2017 Family History Medical History Relation Name Comments Cancer Maternal Aunt Relation Name Status Comments Maternal Aunt Alive Breast and Col on cancer Social History Tobacco Use Types Packs/Day Years Used Date Smoking Tobacco: Light Smoker Smokeless Tobacco: Never Alcohol Use Standard Drinks/Week Comments No 0 (1 standard drink = 0.6 oz pur e alcohol) Sex and Gender Information Value Date Recorded Sex Assigned at Not on file Gender Identity Not on file Sexual Orientation Not on file Last Filed Vital Signs Vital Sign Reading Time Taken Comments Blood Pressure 113/59 08/10/2017 12:57 PM EDT Pulse 87 08/10/2017 12:57 PM EDT Temperature 36.8 C (98.3 F) 08/10/2017 12:57 PM EDT Respiratory Rate - - Oxygen Saturation - - Inhaled Oxygen Concentration - - Weight 74.8 kg (165 lb) 08/10/2017 12:57 PM EDT Height 162.6 cm (5' 4 ) 08/10/2017 12:57 PM EDT Body Mass Index 28.32 08/10/2017 12:57 PM EDT Plan of Treatment Health Maintenance Due Date Last Done Comments Depression Screening 1966 Preventative Health Evaluation 1972 Shingrix-Zoster Vaccine (1 o f 2) 1973 Colon Cancer Screening (Colonoscopy) 08/09/1999 Breast Cancer Screening (Mammogram) 2004 Fall Risk Assessment 08/09/2019 Osteoporosis Screening (DEXA Scan) 08/09/2019 COVID-19 Vaccine (3 - Pfizer risk series) 06/01/2020 05/04/2020, 04/13/2020 Pneumococcal Vaccine (2 of 2 - PCV) 12/03/2020 12/04/2019 DTap / Tdap / Td (1 - Tdap) 12/11/2020 12/10/2020 Influenza Vaccine (#1) 2024 RSV Adult > 60+ Yrs or (1 - 1-dose 75+ series) 2029 Hepatitis C Screening Completed 03/15/2021 Hepatitis B Vaccines Aged Out No long er eligible based on patient's age to complete this topic RSV Ped < 20 months Aged Out No longe r eligible based on patient's age to complete this topic Care Teams Equine Breeder Relationship Specialty Start Date End Date Cat Guidno [address] [place] [address] [place] [address] PCP - General Family Medicine 08/10/17
== END 2024-08-16 10:00 | disposition home or self-care (01) ==
LOC: HO.MAMMO 09:59
PROVIDERS: PCP Nurse Practitioner Family; Visit Provider Nurse Practitioner Family
DX: Z12.31 Encounter for screening mammogram for malignant neoplasm of breast (principal)
CPT/HCPCS: 77063; 77067

== ENCOUNTER → 2024-08-16 10:30 | Outpatient (BNV) | payer MEDICARE, SELFPAY | PROVIDERS: PCP Nurse Practitioner Family; Visit Provider Internal Medicine | DX: Z12.31 Encounter for screening mammogram for malignant neoplasm of breast (principal) | CPT/HCPCS: 77063; 77067 ==

== ENCOUNTER 2024-10-23 10:00 | Outpatient (AMB) | payer MEDICARE, SELFPAY ==
[2024-10-23 10:13] VITALS: BP 121/64; PULSE 96; BMI 25.6
--- NOTE | 2024-10-23 10:13 | MHC.OFFVIS ---
Vital Signs 10/23/24 10:13 Height 5 ft 5 in Weight 154 lb BMI 25.6 BP 121/64 Blood Pressure Location Rt brachial Position Sitting Pulse 96 Intake Visit Reasons: hx of left breast CA, 1 year follow up Intake Note: Patient here for yearly breast exam. Hx of left breast CA. PAULINO: 10-11-2023 Patient c/o: no concerns. Denies breast tenderness, lumps, nipple discharge. Imaging: MM~ 08-16-2024 Helpdesk Manager Required: No Accompanied by: Self / Same As Patient Allergies celecoxib (Celebrex) Allergy (Severe, Verified 10/23/24 10:14) swelling gabapentin (From NEURONTIN) Allergy (Severe, Verified 10/23/24 10:14) SWELLING fentanyl (FENTANYL) Allergy (Intermediate, Verified 10/23/24 10:14) NAUSEA & VOMITING, stomach upset influenza vaccine Allergy (Severe, Uncoded 10/23/24 10:14) nausea and vomiting NSAIDS Allergy (Intermediate, Uncoded 10/23/24 10:14) stomach upset HPI HPI hx of left breast CA, 1 year follow up: Details: 69-year-old female here for a history of left breast cancer. She had undergone lumpectomy and sentinel node biopsy for an invasive ductal cancer of the left breast in [facility] in 2018. She had a T1 N0 cancer at that time. She moved to [place] thereafter and underwent radiation to the left breast there. She was a candidate for hormonal treatment as she had receptors positive for ERPR but she did not want to proceed with hormonal treatment. She moved back to [place] 4years ago. She continues to follow up with Dr. Da Silva as well as Oncology. She denies any palpable breast masses. She says she feels well overall. She had a mammogram done last August 2024 which was unremarkable. [facility] Medical History Cataracts, bilateral History of left breast cancer Hx of radiation therapy HTN (hypertension) Arthritis Back pain GERD (gastroesophageal reflux disease) HX: breast cancer Hx of vertigo History of anxiety COVID-19 vaccine administered History of Croft's esophagus Surgical History History of knee replacement Hx of tonsillectomy Hx of hysterectomy History of lumpectomy of left breast History of esophagogastroduodenoscopy (EGD) H/O colonoscopy Family History Maternal Aunt Breast cancer Mother Hypertension Brother Hypertension Maternal Uncle Brain cancer Social History Household Members: Spouse Housing: House Are you a primary hemodialysis patient care specialist to a significant other at home: No Do you presently have visiting nurse or other home services: No Alcohol intake: former Patient Tobacco Use Status: Never used Tobacco service: No Current occupational status: retired Review of Systems Const Denies chills and Denies fever(s) Card Denies chest pain, Denies dyspnea and Denies dyspnea on exertion Resp Denies cough, Denies dyspnea and Denies dyspnea on exertion GI Denies hematochezia and Denies change in bowel habits Denies hematuria Musc Denies back pain and Denies limited range of motion Neuro Denies focal weakness and Denies convulsions Psych Denies depression and Denies mood swings Physical Exam Vital Signs: Last Vital Signs Pulse 96 10/23/24 10:13 BP 121/64 10/23/24 10:13 BMI result Body Mass Index 25.6 Const General: comfortable and no acute distress Orientation/consciousness: patient oriented x3 Neck Neck: Yes no lymphadenopathy Chest Other: No palpable breast masses, no axillary lymphadenopathy, no nipple or skin changes Resp Auscultation: clear to auscultation bilaterally Cardio Rhythm: regular rhythm GI Palpation (GI): Soft to palpation, nontender and no guarding Neuro General: patient oriented x3 Assessment & Plan Assessment & Plan (1) History of left breast cancer: Code(s): Z85.3 - Personal history of malignant neoplasm of breast Category: Medical Plan: She continues to do very well. Physical exam currently does not suggest any recurrent breast mass or any axillary lymphadenopathy I have reviewed her mammogram from August 2024 and this did not suggest any mass I reminded her to continue with a regular screening mammograms. She is also to continue to follow with Dr. Da Silva I will see her in the office next year. Coding Level of Care Code Est Pt Level 3 (89098) Complex EM visit Add On G2211 Diagnoses History of left breast cancer Z85.3
--- OUTSIDE RECORDS SUMMARY | 2024-10-23 12:02 | XMS_ITS | Clinical Summary ---
Author Organization [facility] Address [address] [place] [address] Care Team Providers Care Dramatic Coach Name Role Phone Cat Gudino Primary Care Provider [phone] Allergies Active Allergy Reactions Criticality Noted Date [...] hours. 0 Active ergocalciferol (VITAMIN D2) capsule 41119 units Take 50,000 Units by mouth once [...] age to complete this topic Care Teams Dramatic Coach Relationship Specialty Start Date End Date Cat Gudino [address] [place] [address] [place] [address] PCP - General Family Medicine 08/10/17
--- OUTSIDE RECORDS SUMMARY | 2024-10-23 12:03 | XMS_ITS | Patient Health Record ---
Author Organization [facility] Address [address] [place] [address] Care Team Providers Care Director Speech Name Role Phone Ronal Cabral Primary Care [...] Problem Status W/U Status Risk Notes Problem 878264775 Colon cancer screening (Z12.11) Active confirmed Problem 637066844 Croft's esophagus without dysplasia (K22.70) Active confirmed Problem 81002367 Irritable bowel syndrome, unspecified type (K58.9) Active confirmed Vital Signs Temperature 97.5 degrees Fahrenheit 11/15/2023 Blood pressure diastolic 00 mm Hg 11/15/2023 Height 65 in 11/15/2023 Blood pressure systolic 000 mm Hg 11/15/2023 Weight 153 lb 6 oz lbs 11/15/2023 BMI 25.52 kg/m2 11/15/2023 Encounters Encounter Location Date Provider Diagnosis [facility] [address] [place] [address] 11/15/2023 Aleksander Moore Jr Croft's esophagus without [...] 10:20:00 AM, [address], [address], [place], [address], Insurance Providers Payer Name Payer Address Payer Phone Subscriber Number Group Number Insured Name Patient Relationship to Insured Coverage Start Date Coverage End Date [facility] [address] [place], [place] [id number] DARYA JARAMILLO Self - patient is [...]
--- OUTSIDE RECORDS SUMMARY | 2024-10-23 12:03 | XMS_ITS | Encounter Summary ---
Author Organization [facility] Address [address] [place] [address] Phone Care Team Providers Care Sap Portal Developer Name Role Phone Cat Gudino CNP Primary Care Provide r Encounter Details Date Type Department Care Team (Late Contact Info) Description 10/05/2021 Procedure Pass OR Admitting Dept - Virtual Department [address] [place] [id number] Social History Tobacco Use Types Packs/Day Years Used Date Smoking Tobacco: Former Cigarettes 0.5 40 1 978 - 2017 Smokeless Tobacco: Never Alcohol Use Standard Drinks/Week Comments No 0 (1 standard drink = 0.6 oz pur e alcohol) Comments No Sex and Gender Information Value Date Recorded Sex Assigned at Not on file Legal Sex Female 12:57 PM EST Gender Identity Not on file Sexual Orientation Not on file documented as of this encounter Plan of Treatment Upcoming Encounters Date Type Department Care Team (Late Contact Info) Description 01/08/2025 10:30 AM EST Office Visit [facility] [address] [address] Cat Gudino CNP [address] [place] [address] documented as of this encounter Visit Diagnoses Not on filedocumented in this encounter Additional Health Concerns Assessment Noted Time PHQ-2 Depression Total Score: 0 12/11/19 21 10:20 AM EDT documented as of this encounter Care Teams Sap Portal Developer Relationship Specialty Start Date End Date Cat Gudino CNP [address] [place] [address] [email or web address] PCP - General Family Medicine 11/28/19 documented as of this encounter Additional Source Comments The information contained in this document represents components of the legal health record. It is not the complete legal health record.[facility]
--- OUTSIDE RECORDS SUMMARY | 2024-10-23 12:03 | XMS_ITS | Clinical Summary ---
Author Organization [facility] Address [facility] [employer] [address] [address] Phone Care Team Providers Care Taffy Puller Name Role Phone Cat Gudino CNP Primary Care Provide r Allergies Active Allergy Reactions Criticality Noted Date Comments Fentanyl Nausea and/or Vomiting 01/24/2017 Gabapentin GI Upset 01/24/2017 Nsaids (Non-Steroidal Anti-Inflammatory Drug) GI Upset,Unknown 01/24/2017 Medications cetirizine (ZYRTEC) 10 MG tablet Take 10 mg by mouth daily. Active VITAMIN D3 50 mcg (2,000 unit) capsule TAKE 1 CAPSULE (50MCGS) BY MOUTH DAILY 1 Active meclizine (ANTIVERT) 25 MG tablet Take 1 tablet (25 mg total) by mouth 3 (three) times a day as needed. 30 tablet 1 1 Active buPROPion (WELLBUTRIN SR) 150 MG SR 12 hr tabletIndicati ons:Anxiety take one tablet by mouth twice a day 180 tablet 3 4 Active aspirin 81 MG EC tablet Take 81 mg by mouth daily. Active mupirocin (BACTROBAN) 2 % ointment Apply topically 3 (three) times a day. 22 g 3 5 Active esomeprazole (NEXIUM) 20 MG capsule Take 1 capsule (20 mg total) by mouth daily before breakfast. 90 capsule 3 5 Active amLODIPine (NORVASC) 10 MG tablet TAKE ONE TABLET BY MOUTH EVERY DAY 90 tablet 3 5 Active hydroCHLOROthi azide 25 MG tablet TAKE ONE TABLET BY MOUTH EVERY DAY 90 tablet 3 5 Active LORazepam (ATIVAN) 0.5 MG tabletIndicati ons:Anxiety TAKE ONE TABLET BY MOUTH TWICE A DAY 168 tablet 5 Active fluocinonide 0.05 % cream Apply 1 Application topically 2 (two) times a day. 30 g 2 5 Active morphine (MS CONTIN) 15 MG ER tabletIndicati ons:Chronic left-sided low back pain with left-sided sciatica Take 1 tablet (15 mg total) by mouth 2 (two) times a day for 28 days. 56 tablet 5 11/16/19 25 Active morphine (MS CONTIN) 15 MG ER tabletIndicati ons:Chronic left-sided low back pain with left-sided sciatica Take 1 tablet (15 mg total) by mouth 2 (two) times a day for 28 days. 56 tablet 5 10/11/19 25 Discontin ued(Reord er) fluocinonide 0.05 % cream Apply 1 Application topically 2 (two) times a day. 09/26/19 25 Discontin ued(Reord er) Active Problems Problem Noted Date Diagnosed Date Statin intolerance 09/27/2023 Assessment & Plan (09/27/2023 10:42 AM EDT): Briefly discussed lipid levels and CV risk which is intermediate using AHA PREVENT risk calculator. Statin intolerant. Eating healthy diet, defers on Repatha, continue to monitor levels over time, she is aware rising age can raise risk Immunization declined 06/28/2023 Overview (06/28/2023): Declines Zoster, Pneumonia, Covid vaccines Assessment & Plan (07/02/2024 11:02 AM EDT): Declines pneumonia vaccine Assessment & Plan (06/28/2023 11:04 AM EDT): Declines Zoster, Pneumonia, Covid vaccines Lung cancer screening declined by patient 2022 Overview (06/28/2023): 05/2022 , 06/2023 reviewed LDCT for LCS program, pros and cons, pt wants to think about it first before committing Assessment & Plan (07/02/2024 11:12 AM EDT): Declines to initiate LCS by LDCT Assessment & Plan (06/28/2023 10:51 AM EDT): Again declines LCS by LDCT, she wants to continue to think about it Assessment & Plan (05/24/2022 10:52 AM EDT): Reviewed LDCT for LCS program, pros and cons, pt wants to think about it first before committing, handout provided with further info Hx of total knee replacement, right 11/15/2021 Overview (11/15/2021): 2021 Dr Tipton Assessment & Plan (11/15/2021 10:53 AM EDT): Recovering well from knee replacement, pain minimal. Vitamin D deficiency 09/02/2020 Right rotator cuff tendonitis 07/27/2020 Assessment & Plan (12/10/2020 11:20 AM EDT): Pain well controlled with steroid injections by ortho Malignant neoplasm of upper- outer quadrant of left breast in female, estrogen receptor positive 10/23/2017 Overview (05/24/2022): Dx 2018 RUQ ER+, MA+, HER2- Dr Sheldon, oncologist and [place], [place] [facility] & Plan (07/02/2024 11:09 AM EDT): Seven years cancer free, no recurrence, annual surveillance. Assessment & Plan (06/28/2023 10:53 AM EDT): No recurrence Dr Sheldon, oncologist and [place], [place] [facility] Assessment & Plan (05/24/2022 10:47 AM EDT): No recurrence since dx in 2018 Assessment & Plan (03/15/2021 10:30 AM EST): Dx 2018 RUQ ER+, MA+, HER2- Under the care and surveillance of Dr Sheld[place], [place] [facility] mamm[place] 07/2020 Assessment & Plan (12/10/2020 11:18 AM EDT): Dx'd 2018 - under care [place] [facility], no recurrence, has appt in two weeks for exam Chronic left-sided low back pain with left-sided sciatica 01/24/2017 Assessment & Plan (10/08/2024 11:39 AM EDT): Stable on current regimen Assessment & Plan (07/02/2024 11:10 AM EDT): Stable with chronic use of twice daily MS Contin Assessment & Plan (01/02/2024 11:02 AM EST): Stable on current regimen, she is active as tolerated Assessment & Plan (02/15/2022 10:54 AM EST): Current regimen of opioid analgesic which she has been on intermediate card tender effective for keeping pain to a tolerable level with positive effect on QOL Assessment & Plan (11/15/2021 10:54 AM EDT): Pain adequately controlled on current regimen of MS Contin Assessment & Plan (08/31/2021 9:49 AM EDT): Chronic use of MS Contin for control of low back pain, surgeon may need to augment this regimen with immediate acting analgesics per their usual postop protocol. Assessment & Plan (06/14/2021 10:20 AM EDT): Back mostly controlled with use of MS Contin, right knee pain affecting gait which can bother her back as well. Assessment & Plan (03/15/2021 10:31 AM EST): Stable, tolerable pain on chronic use of sustained release morphine Assessment & Plan (12/09/2020 7:16 AM EDT): Stable on current regimen of twice daily MS Contin and core exercises Chronic neck and back pain 01/24/2017 Assessment & Plan (10/08/2024 11:39 AM EDT): Stable on current regimen Assessment & Plan (07/02/2024 11:11 AM EDT): Stable with chronic use of twice daily MS Contin Assessment & Plan (04/02/2024 10:28 AM EST): Stable on current regimen, uses heat, rest prn. Suggest adding Acetaminophen prn Assessment & Plan (01/02/2024 11:03 AM EST): Stable on current regimen Assessment & Plan (09/27/2023 10:39 AM EDT): Stable on current regimen, some days better than others dependent on what she has done or is doing. Assessment & Plan (06/28/2023 10:53 AM EDT): Stable on current regimen of MS Contin Assessment & Plan (03/15/2023 10:30 AM EST): Stable on current regimen. Continue topical therapies and ROM exercises. Assessment & Plan (12/13/2022 10:12 AM EST): Remain active as able. Stress and tension in muscles may be causing some increase in discomfort Assessment & Plan (08/30/2022 10:28 AM EDT): Stable on current regimen of opioid therapy Assessment & Plan (07/11/2022 10:47 AM EDT): Stable with chronic MS Contin use Assessment & Plan (05/24/2022 10:50 AM EDT): Stable with low dose extended dose Morphine Assessment & Plan (02/15/2022 10:54 AM EST): Current regimen of opioid analgesic which she has been on skilled nursing effective for keeping pain to a tolerable level with positive effect on QOL Assessment & Plan (04/25/2017 10:06 AM EDT): Continue Morphine for pain management, if treatment options are exhausted and continues to have increase pain may need to have prn [place] for breakthrough pain. DDD (degenerative disc disease), cervical 2016 DDD (degenerative disc disease), lumbar 01/25/20 17 Anxiety 01/24/2017 Assessment & Plan (07/02/2024 11:09 AM EDT): Stable on skilled nursing Lorazepam Assessment & Plan (06/28/2023 10:55 AM EDT): Stable with Lorazepam use skilled nursing Assessment & Plan (03/15/2023 10:30 AM EST): Stable with Lorazepam Assessment & Plan (07/11/2022 10:47 AM EDT): Stable with chronic Lorazepam use Assessment & Plan (05/24/2022 10:50 AM EDT): Stable with chronic benzo use, started years ago by previous PCP Assessment & Plan (06/14/2021 10:22 AM EDT): Stable on regular use of Lorazepam Assessment & Plan (03/15/2021 10:31 AM EST): Stable on current regimen of Lorazepam twice daily Assessment & Plan (12/09/2020 7:17 AM EDT): Stable on long-term regular use of benzodiazepine Assessment & Plan (04/25/2017 10:07 AM EDT): Stable on current dosing regimen Essential hypertension 01/24/2017 Assessment & Plan (10/08/2024 11:39 AM EDT): Stable on current regimen Assessment & Plan (07/02/2024 11:11 AM EDT): Stable on current regimen Assessment & Plan (06/28/2023 10:47 AM EDT): Stable on current regimen Assessment & Plan (08/30/2022 10:28 AM EDT): Stable on current regimen 10 - year calculated CV risk using the AHA/ACC 2018 Prevention Guidelines Tool CV risk calculator is 6.7% Assessment & Plan (07/11/2022 10:46 AM EDT): Stable on current regimen Assessment & Plan (05/24/2022 10:49 AM EDT): Stable on current regimen Assessment & Plan (02/15/2022 10:52 AM EST): Stable on current regimen Assessment & Plan (08/31/2021 9:49 AM EDT): Stable on current regimen, EKG without ischemic changes Assessment & Plan (06/14/2021 10:22 AM EDT): Stable on current regimen Assessment & Plan (12/10/2020 11:18 AM EDT): Stable on current regimen Chronic gastroesophageal reflux disease 01/25/20 17 Overview (12/10/2020): [place] [facility] 2020 Assessment & Plan (07/02/2024 11:10 AM EDT): Stable with chronic PPI therapy Assessment & Plan (06/28/2023 10:50 AM EDT): Stable on chronic PPI therapy, under the care of Dr [place] [facility] Assessment & Plan (05/24/2022 10:49 AM EDT): Stable on chronic PPI. Under the care of Dr [place] [facility] Assessment & Plan (12/10/2020 11:01 AM EDT): Stable on Nexium and trigger avoidance Croft's esophagus determined by endoscopy 01/06 Overview (12/10/2020): [place] [facility] [place] 2020 Assessment & Plan (07/02/2024 11:10 AM EDT): Under care of GI, chronic PPI therapy. Assessment & Plan (06/28/2023 10:50 AM EDT): Stable on chronic PPI therapy, under the care of Dr [place] [facility] Assessment & Plan (05/24/2022 10:49 AM EDT): Stable on chronic PPI. Under the care of Dr [place] [facility] Assessment & Plan (12/10/2020 11:01 AM EDT): [place] [facility] [place] 2020, stable, seen every five years Irritable bowel syndrome wit h both constipation and diarrhea 01/24/2017 Assessment & Plan (07/02/2024 11:12 AM EDT): Self-manages with diet, avoiding triggers Assessment & Plan (06/28/2023 10:50 AM EDT): Stable, under the care of Dr [place] [facility] Assessment & Plan (12/10/2020 11:19 AM EDT): Stable with prn use of Miralax Osteopenia of multiple sites 01/24/2017 Overview (06/19/2024): [place] 07/2023 [facility] [place] Osteopenia L FN and TH, normal spine Assessment & Plan (07/02/2024 11:12 AM EDT): Remains active, fall prevention Assessment & Plan (05/24/2022 10:48 AM EDT): Updating bone density next month, await results. Fall prevention and continue weight bearing exercise Resolved Problems Problem Noted Date Diagnosed Date Resolved Date Primary osteoarthritis of right knee 02/27/2020 05/12/2022 Assessment & Plan (08/31/2021 9:53 AM EDT): Anticipating surgical repair Assessment & Plan (06/14/2021 10:21 AM EDT): Under the care of Dr Tipton, received recent injection, awaiting effect, if no result will need knee replacement. Having continual pain altering gait at this point. Assessment & Plan (03/15/2021 10:32 AM EST): Under the care of Dr Tipton, improved but still with pain, next appt next month Assessment & Plan (12/10/2020 11:20 AM EDT): Pain well controlled with steroid injections by ortho Sciatica of right side 02/27/202005/24 Knee instability, right 02/27/2020 04/0 07/2022 Encounters Date Type Department Care Team Description 10/10/2024 Refill [facility] [address] [place] [address] Mel Gillespie LPN Medication Refill 10/08/2024 10:30 AM EDT Office Visit [facility] [address] [place] [address] Cat Gudino CNP Chronic left-sided low back pain with left-sided sciatica (Primary Dx); Chronic neck and back pain; Essential hypertension 09/25/2024 Refill [facility] [address] [place] [address] Cat Gudino CNP Medication Refill (Flucinonide + not on med list) 09/13/2024 Orders Only [facility] Info Management Virtual Department [address] [place] [address] Provider, MD Scott 09/10/[address] [address] Mel Gillespie LPN Medication Refill 09/04/[address] [address] Cat Gudino CNP Medication Refill 09/02/2024 Orders Only [facility] [address] [place] [address] ProviderScott MD 08/23/[address] [address] Cat Gudino CNP Medication Refill 08/13/[address] [address] Mel Gillespie LPN Medication Refill 07/23/[address] [address] Cat Gudino CNP Medication Refill from Last 3 Months Immunizations Immunization Administration Dates Next Due COVID-19 (Pre-11/28) Pfizer Vaccine, mRNA, PF ,04/13/2020 Pneumococcal polysaccharide PPSV23 12/04/2019 Td (adult) 5 Lf Tetanus Toxoid, PF, Adsorbed 05/2020 Family History Medical History Relation Comments Hyperlipidemia Brother 1 Hypertension Brother 1 Hyperlipidemia Brother 2 Hypertension Brother 2 Hyperlipidemia Brother 3 Hypertension Brother 3 No Known Problems Daughter Alcohol abuse Father Stroke Maternal Grandfather Hypertension Mother Osteoarthritis Mother Hypertension Sibling No Known Problems Son 1 No Known Problems Son 2 Relation Status Comments Brother 1 Brother 2 Brother 3 Daughter Father Maternal Grandfather Mother Alive Sibling Son 1 Son 2 Social History Tobacco Use Types Packs/Day Years Used Date Smoking Tobacco: Former Cigarettes 0.5 40 1 978 - 2017 Smokeless Tobacco: Never Tobacco Cessation:Counseling Given: Not Answered Alcohol Use Standard Drinks/Week Comments No 0 (1 standard drink = 0.6 oz pur e alcohol) Education Answer Date Recorded Are you interested in more education? Not on kelsey e 06/03/2022 Are you concerned about learning? Not on file 06/03/2022 No 06/03/2022 No 06/03/2022 Digital Access Answer Date Recorded No 07/02/2022 No 07/02/2022 Reliable internet access at home? Not on file 07/02/2022 Device with a working camera? Not on file Intimate Partner Violence Answer Date R ecorded Denied Basic Needs Not on file 07/02/2024 In the past 12 months have y ou been in a relationship with a person who hurts, threatens, or tries to control you? No 07/02/2024 Worried food would run out Not on file 07/02 In the past 12 months have y ou been in a relationship with a person who hurts, threatens, or tries to control you? No 07/02/2024 Comments No Sex and Gender Information Value Date Recorded Sex Assigned at Not on file Legal Sex Female 12:57 PM EST Gender Identity Not on file Sexual Orientation Not on file Last Filed Vital Signs Vital Sign Reading Time Taken Comments Blood Pressure 110/70 10/08/2024 10:31 AM EDT Pulse 82 10/08/2024 10:31 AM EDT Temperature 36.6 C (97.8 F) 10/08/2024 10:31 AM EDT Respiratory Rate 16 10/29/2021 10:10 AM EDT Oxygen Saturation 97% 10/08/2024 10:31 AM EDT Inhaled Oxygen Concentration - - Weight 70.4 kg (155 lb 3.2 oz) 10/08/2024 10:31 AM EDT Height 163.2 cm (5' 4.25 ) 07/02/2024 10:18 AM E DT Body Mass Index 26.43 07/02/2024 10:18 AM EDT Plan of Treatment Upcoming Encounters Date Type Department Care Team (Late st Contact Info) Description 01/08/2025 10:30 AM EST Office Visit [facility] [address] [place] [phone] Cat Gudino, [employer] [address] [place] [address] Health Maintenance Due Date Last Done Comments ZOSTER VACCINES (1 of 2) 1973 COLOGUARD 08/09/1999 FIT TEST 08/09/1999 FOBT 08/09/1999 SIGMOIDOSCOPY 08/09/1999 VIRTUAL COLONOSCOPY 08/09/1999 LUNG CANCER SCREENING (LDCT Only) 2004 PNEUMOCOCCAL VACCINES (50+ years) (2 of 2 - PCV) 12/03/2020 12/04/2019 INFLUENZA VACCINE (#1) 2024 COVID-19 VACCINE ( season) 2024 03/03/2021, 05/04/2020, 04/13/2020 BLOOD PRESSURE 04/07/2025 10/08/2024 DEPRESSION SCREENING 07/02/2025 07/02/2024 POTASSIUM LEVEL 07/02/2025 07/02/2024, 06/07, 07/11/2022, Additional history exists COLONOSCOPY 07/21/2025 07/22/2015 COLORECTAL CANCER SCREENING 07/21/2025 MAMMOGRAM 08/16/2026 08/16/2024, 07/08, 08/02/2022, Additional history exists LIPID PANEL 07/02/2029 07/02/2024, 06/07, 07/11/2022, Additional history exists RSV VACCINE (1 - 1-dose 75+ series) 2029 SMOKING STATUS SCREENING (Every 5 Years) 10/08/2029 10/08/2024 Adult Td,Tdap Booster 12/10/2030 12/10/2020 HEPATITIS C SCREENING Completed 03/15/2021 OSTEOPOROSIS SCREENING INITIAL (ONE-TIME) Completed 08/02/2022, 07/11/2022 HEPATITIS A VACCINES Aged Out No long er eligible based on patient's age to complete this topic HIB VACCINES Aged Out No longer eligi ble based on patient's age to complete this topic MENINGOCOCCAL VACCINES (ACWY) Aged Out No longer eligible based on patient's age to complete this topic MENINGOCOCCAL VACCINES (B) Aged Out N o longer eligible based on patient's age to complete this topic Medical Devices Implanted Type Area Fuels Engineer Device Identifier Shelf Expiration Date Model / Serial / Lot Clip Clip Left: Breast Bone Cement Antibiotic Refobacin - [id number] Implanted:Qty: 2 on 10/05/2021 by Cosmo Tipton MD at [facility] Right: Knee [employer] [facility] [employer] 10/07/2023 [id number] / / [id number] Knee Implant Sz 6 Component Femoral Persona Ps [place] Cemented Std Rt - [id number] Implanted:Qty: 1 on 10/05/2021 by Cosmo Tipton MD at [facility] Right: Knee [employer] [facility] 05/12/2030 [id number] / / [id number] Knee Implant 5deg Component Tibial Persona Titanium Stemmed Cemented Rt Size D - [id number] Implanted:Qty: 1 on 10/05/2021 by Cosmo Tipton MD at [facility] Right: Knee [employer] [facility] 11/16/2030 [id number] / / [id number] Boulevard Glassware Replacer Component L 30mm Od 14 Knee Persona Extension Tivanium Cemented Tapered - [id number] Implanted:Qty: 1 on 10/05/2021 by Cosmo Tipton MD at [facility] Right: Knee [employer] [facility] 07/31/2031 [id number] / / [id number] Knee Cemented 32x8.5mm Patella All Poly Persona Vivacit E Highly Crossed Linked 06 Nc - [id number] Implanted:Qty: 1 on 10/05/2021 by Cosmo Tipton MD at [facility] Right: Knee [employer] 12/28/2025 [id number] / / [id number] Psn Asf Mlc 16mm Ve R 6-9cd - [id number] Implanted:Qty: 1 on 10/05/2021 by Cosmo Tipton MD at [facility] Right: Knee [employer] 02/17/2025 [id number] / / [id number] Procedures Procedure Name Priority Date/Time Associated Diagnosis Comments OUTSIDE IMAGING Routine 08/16/2024 3:28 PM EDT HM MAMMOGRAPHY Routine 08/16/2024 12:00 PM EDT LIPID PANEL Routine 07/02/2024 11:31 AM EDT Essential hypertension COMPREHENSIVE METABOLIC PANEL Routine 07/02/2024 11:31 AM EDT Essential hypertension HM DEXA SCAN Routine 08/02/2022 9:13 AM EDT HEPATITIS C ANTIBODY, QUALITATIVE Routine 03/15/2021 10:05 AM EST Need for hepatitis C screening test COLONOSCOPY FOR RESULT ENTRY ONLY Routine 07/22/2015 from Last 3 Months or Most Recently Relevant to Health Maintenance Results * Outside Imaging Report Only (08/16/2024 3:28 PM EDT) us Historical Provider IMG XR CHEST Final Res ult * HM MAMMOGRAPHY FOR RESULT ENTRY ONLY (08/16/2024 12:00 PM EDT) us Historical Provider HEALTH MAINTENANCE Edited Result - Final * (ABNORMAL) Comprehensive metabolic panel (07/02/2024 11:31 AM EDT) SODIUM 135 133 - 146 mmol/L [facility] POTASSIUM 3.9 3.3 - 5.1 mmol/L [facility] CHLORIDE 94(L) 96 - 108 mmol/L [facility] CO2 31 21 - 35 mmol/L [facility] BUN 9 6 - 19 mg/dL [facility] CREATININE 0.50 0.5 - 1.5 mg/dL [facility] GLUCOSE 95 70 - 99 mg/dL [facility] ALBUMIN 4.2 3.9 - 4.8 g/dL [facility] TOTAL PROTEIN 7.0 6.5 - 8.0 g/dL [facility] CALCIUM 9.4 8.4 - 10.3 mg/dL [facility] ALKALINE PHOSPHATASE 67 39 - 117 U/L [facility] TOTAL BILIRUBIN 0.5 0.0 - 1.2 mg/dL [facility] AST 22 0 - 37 U/L [facility] ALT 14 0 - 40 U/L [facility] GLOBULIN 2.8 1 - 4.8 g/dL [facility] EGFR 101 >59 mL/min/1.7 3m2 [facility] Comment:Estimated glomerular filtration rate calculated using the CKD-EPI refit equation. ANION GAP 14 10 - 20 mmol/L [facility] Blood 07/02/2024 11:3 1 AM EDT 07/02/2024 11:35 AM EDT us Cat Gudino CNP LAB BLOOD ORDERABLES Final Result Performing Organization Address City/[facility]/ZIP Co de Phone Number [address] [address] * (ABNORMAL) Lipid panel (07/02/2024 11:31 AM EDT) HDL 65 mg/dL [facility] Comment: Interpretation <40 mg/dL: Low HDL cholesterol (major risk factor for CHD) Greater than or equal to 60 mg/dL: High HDL cholesterol ( negative risk factor for CHD) HDL - cholesterol is affected by a number of factors, e.g. smoking, excerise, hormones, sex and age. CHOLESTEROL 227 0 - 240 mg/dL [facility] TRIGLYCERIDES 96 30 - 160 mg/dL [facility] LDL 143(H) 50 - 129 mg/dL [facility] Comment: LDL levels in terms of risk for coronary heart disease: <100 mg/dL: Optimal 100-129 mg/dL: Near or above optimal 130-159 mg/dL: Borderline high 160-189 mg/dL: High >190 mg/dL: Very High CARDIAC RISK RATIO 3.5 3.3 - 4.4 C [facility] Blood 07/02/2024 11:3 1 AM EDT 07/02/2024 11:35 AM EDT us Cat Gudino CNP LAB BLOOD ORDERABLES Final Result [address] [address] * DEXA SCAN (08/02/2022 9:13 AM EDT) Historical Provider HEALTH MAINTENANCE Edited Result - Final * Hepatitis C antibody, qualitative (03/15/2021 10:05 AM EST) HCV NON-REACTIV E NON-REACTI VE [facility] Blood 03/15/2021 10:0 5 AM EST 03/15/2021 10:28 AM EST Cat Gudino [facility] LAB BLOOD ORDERABLES Final Result Performing Organization Address City/[facility]/ZIP Co de Phone Number [address] [address] * COLONOSCOPY FOR RESULT ENTRY ONLY (07/22/2015) Colonoscopy Unknown Historical Provider HEALTH MAINTENANCE Final Result from Last 3 Months or Most Recently Relevant to Health Maintenance Insurance [address] [place] [id number] [employer] [place] BLUE REPLACEMENT [address] [place] [address] MEDICARE PPO BLUE REPLACEMENT [address] [place] [address] MEDICARE PPO BLUE REPLAC[place] Advance Directives For more information, please contact: [phone] (9AM - 5PM [place], Monday-Monday) Documents on File Type Date Recorded Patient Rag Shredder Expl anation Healthcare Proxy 10/07/2021 2:25 PM * Full Code (Latest Code Status on File) Date Activated Date Inactivated Comments 10/05/2021 6:15 AM Question Answer Comments Code Status Confirmed With: Patient Care Teams Taffy Puller Relationship Specialty Start Date End Date Cat Gudino CNP [address] [place] [phone] [email or web address] PCP - General Family Medicine 11/28/19 Additional Source Comments The information contained in this document represents components of the legal health record. It is not the complete legal health record.[facility]
--- OUTSIDE RECORDS SUMMARY | 2024-10-23 12:03 | XMS_ITS | Encounter Summary ---
Author Organization [facility] Address [address] [place] [id number] Phone Care Team Providers Care Cost Control Analyst Name Role Phone Cat Gudino CNP Primary Care Provide r Encounter Details Date Type Department Care Team (Late st Contact Info) Description 03/15/2021 Transcribe Orders [facility] [address] [place] [address] Cat Gudino CNP [address] [place] [id number] [email or web address] Social History Tobacco Use Types Packs/Day Years Used Date Smoking Tobacco: Former Cigarettes 0.5 40 1 978 - 2018 Smokeless Tobacco: Never Comments:1-2 per day Alcohol Use Standard Drinks/Week Comments No 0 (1 standard drink = 0.6 oz pur e alcohol) Comments Unknown Sex and Gender Information Value Date Recorded Sex Assigned at Not on file Legal Sex Female 12:57 PM EST Gender Identity Not on file Sexual Orientation Not on file documented as of this encounter Plan of Treatment Upcoming Encounters Date Type Department Care Team (Late st Contact Info) Description 01/08/2025 10:30 AM EST Office Visit [facility] [address] [place] [address] Cat Gudino CNP [address] [place] [address], [place] [phone] [email or web address] documented as of this encounter Visit Diagnoses Not on filedocumented in this encounter Additional Health Concerns Assessment Noted Time PHQ-2 Depression Total Score: 0 12/11/19 21 10:20 AM EDT documented as of this encounter Care Teams Cost Control Analyst Relationship Specialty Start Date End Date Cat Gudino CNP [address] [place] [address] [email or web address] PCP - General Family Medicine 11/28/19 documented as of this encounter Additional Source Comments The information contained in this document represents components of the legal health record. It is not the complete legal health record.[facility]
--- OUTSIDE RECORDS SUMMARY | 2024-10-23 12:03 | XMS_ITS | Patient Health Record ---
[facility] Address [address] [place] [address] Care Team Providers Care Powder Coater Name Role Phone Ronal Cabral MD Primary Care Provider Dawood Ba Unavailable [phone] Allergies Allergen (clinical drug ingredient) Drug/Non Drug [...] Weeks, 1 Week off Not-Taking Vitamin D 21847 Not- Taking Morphine Sulfate 15 MG 1 [...] X ray : Foot, right 3V 07/14/2017 [id number] TENDON SHEATH/LIGAMENT 0 10/18/2016 Insurance Providers Payer Name Payer Address Payer Phone Subscriber Number Group Number Insured Name Patient Relationship to Insured Coverage Start Date Coverage End Date Medicare [employer] [address] [place] [address] [id number] Kati Butts Self - patient is the insured Medical (General) History Medical History History ICD Code Anxiety Arthritis Broken bones High blood pressure Numbness Osteoporosis Reflux ( GERD) Measles Mumps Chicken pox Back,Hip,and Knee pain Surgical History Surgery Date(Month/Year) Tonsilectomy 1965 Hysterectomy 1976 breast cancer 2018
== END 2024-10-23 10:30 | disposition home or self-care (01) ==
LOC: HO.HGS 10:01
PROVIDERS: PCP Nurse Practitioner Family; Visit Provider Surgery
DX: Z85.3 Personal history of malignant neoplasm of breast (principal)
CPT/HCPCS: 99213; G2211

== ENCOUNTER → 2024-10-23 10:00 | Outpatient (BNVA) | payer MEDICARE, SELFPAY | PROVIDERS: PCP Nurse Practitioner Family; Visit Provider Surgery | DX: Z85.3 Personal history of malignant neoplasm of breast (principal) | CPT/HCPCS: 99212 ==

== ENCOUNTER 2025-01-01 10:32 | Outpatient (REF) | payer MEDICARE, SELFPAY ==
--- NOTE | ~2025-01-01 | MM_ITS ---
EXAMINATION: DXA BONE DENSITY AXIAL HISTORY: Osteopenia TECHNIQUE: [facility] [place] Dual energy absorptiometry (DEXA) of the lumbar spine, total left hip, and femoral neck was performed. COMPARISON: Comparison is made with the prior examination dated 08/02/2022. FINDINGS: The bone mineral density of the lumbar spine is 1.484 g/cm2, corresponding to a T-score of 2.5, and a Z-score of 4.1. This is indicative of normal bone mineral density. This represents a BMD change of 1.0% compared to the prior exam. This is not statistically significant. The bone mineral density of the left total hip is 0.822 g/cm2, corresponding to a T-score of -1.5, and a Z-score of -0.1. This is indicative of osteopenia. This represents a BMD change of -2.4% compared to the prior exam. This is not statistically significant. The bone mineral density of the left femoral neck is 0.827 g/cm2, corresponding to a T-score of -1.5, and a Z-score of 0.1. This is indicative of osteopenia. This represents a BMD change of -4.6% compared to the prior exam. MM/XR DEXA axial skeleton IMPRESSION: Based on bone mineral density, and according to World Health Organization (WHO) criteria, the diagnosis is consistent with osteopenia. Statistically, 68% of repeat scans fall within 1 SD (+/- 0.010 g/cm2 for AP spine L1-L4) and 1 SD (+/- 0.012 g/cm2 for femur total) FRAX is a trademark of the [employer] Met[employer], a World Health Organization (WHO) Collaborating Center. Electronically signed by: Nilson Kapoor MD 01/01/2025 01:12 PM [facility] [place]
== END 2025-01-01 10:33 | disposition home or self-care (01) ==
LOC: HO.MAMMO 10:32
PROVIDERS: PCP Nurse Practitioner Family; Visit Provider Internal Medicine Medical Oncology
DX: M85.89 Other specified disorders of bone density and structure, multiple sites (principal)
CPT/HCPCS: 77080

== ENCOUNTER → 2025-01-01 11:00 | Outpatient (BNV) | payer MEDICARE, SELFPAY | PROVIDERS: PCP Nurse Practitioner Family; Visit Provider Radiology Diagnostic Radiology | DX: E28.39 Other primary ovarian failure (principal) | CPT/HCPCS: 77080 ==